=== PATIENT | female | born 1950 | race Caucasian/White ===

== ENCOUNTER 2017-12-16 10:58 | Emergency (ER) | payer OTHER ==
[~2017-12-16] VITALS: Ht 157.5 cm; Wt 110.7 kg
[~2017-12-16 10:58] MED LIST: ASPIRIN EC325 M1 PO; AUGMENTIN 875875 M1 PO; BYSTOLIC 5 MG5 M1 PO; CARISOPRODOL 3350 MG PO; CELEBREX 200 M200 M1 PO; CELEXA 20 MG TA20 M1 PO; COUMADIN7.5 MG PO; CYCLOBENZAPRINE10 MG PO; D3 DOTS2000 UNIT PO; FISH OIL 1,2001 EAC4 PO; FISH OIL CONC1000 MG PO; FUROSEMIDE 40 M40 MG PO; HYDROCODON-ACE1 EA12 PO; LISINOPRIL20 MG PO; LIVALO2 MG PO; NORCO 5-325 TA1 EACH PO; NORCO 7.5-3251 EACH PO; TRAMADOL 50 MG50 MG PO; TYLENOL EXTRA500 MG PO; XARELTO15 MG PO
[2017-12-16 10:59] VITALS: BP 144/72
[2017-12-16] MEDS ORDERED: NORFLEX100 MG PO (12:16)
[2017-12-16] MEDS ORDERED: PERCOCET PO (12:16)
== END 2017-12-16 13:17 | disposition home or self-care (01) ==
LOC: ER 10:58
DX: M54.5 Low back pain (principal); M53.3 Sacrococcygeal disorders, not elsewhere classified; G89.29 Other chronic pain; E66.9 Obesity, unspecified; I10 Essential (primary) hypertension; E78.5 Hyperlipidemia, unspecified; Z88.2 Allergy status to sulfonamides; Z88.8 Allergy status to other drugs, medicaments and biological substances; Z68.41 Body mass index [BMI] 40.0-44.9, adult; Z95.5 Presence of coronary angioplasty implant and graft; Z96.652 Presence of left artificial knee joint

== ENCOUNTER → 2019-01-26 | Outpatient (CLI) | payer OTHER ==
[~2019-01-26] VITALS: Ht 157.5 cm; Wt 112.5 kg
[~2019-01-26] MED LIST changes: +ELIQUIS5 MG PO; +NORFLEX100 MG PO; +PERCOCET PO
[2019-01-26 12:50] VITALS: BP 153/88
[2019-01-26 13:15] LABS: HEMATOCRIT 44.5 % (37.0-47.0); HEMOGLOBIN 14.3 gm/dL (12.0-15.0); MCH 26.7 pg (26.0-34.0); MCHC 32.1 g/dL (28.0-37.0); MCV 83.2 fL (80.0-100.0); RBC 5.35 mil/uL (4.20-5.00); RDW 14.8 % (10.5-14.5); WBC 10.4 thou/uL (4.0-11.0)
[2019-01-26 13:26] LABS: CALCIUM 10.2 mg/dL (8.5-10.1); CREATININE 0.9 mg/dL (0.6-1.0); POTASSIUM 4.3 mmol/L (3.5-5.1); PROTIME 9.5 Seconds (9.3-11.4)
[2019-01-26 16:03] VITALS: BP 111/62
[2019-01-26 16:28] VITALS: BP 95/57
== END | disposition home or self-care (01) ==
LOC: CATH 11:52
PROVIDERS: Nuclear Medicine Nuclear Cardiology
DX: I87.1 Compression of vein (principal); I87.303 Chronic venous hypertension (idiopathic) without complications of bilateral lower extremity; I82.402 Acute embolism and thrombosis of unspecified deep veins of left lower extremity; I11.0 Hypertensive heart disease with heart failure; I50.9 Heart failure, unspecified; E78.00 Pure hypercholesterolemia, unspecified; E78.5 Hyperlipidemia, unspecified; I25.10 Atherosclerotic heart disease of native coronary artery without angina pectoris; M19.90 Unspecified osteoarthritis, unspecified site; E66.01 Morbid (severe) obesity due to excess calories; I25.2 Old myocardial infarction; I73.9 Peripheral vascular disease, unspecified; Z98.890 Other specified postprocedural states; Z88.2 Allergy status to sulfonamides; Z88.8 Allergy status to other drugs, medicaments and biological substances; Z79.01 Long term (current) use of anticoagulants; Z79.899 Other long term (current) drug therapy; Z86.711 Personal history of pulmonary embolism

== ENCOUNTER → 2019-10-31 | Outpatient (CLI) | payer OTHER | LOC: SJCVC 13:44 | PROVIDERS: ATTEND Internal Medicine Cardiovascular Disease | DX: I25.10 Atherosclerotic heart disease of native coronary artery without angina pectoris (principal); E78.01 Familial hypercholesterolemia; D68.59 Other primary thrombophilia; I65.23 Occlusion and stenosis of bilateral carotid arteries; I10 Essential (primary) hypertension; Z86.718 Personal history of other venous thrombosis and embolism ==

== ENCOUNTER → 2020-05-15 | Outpatient (CLI) | payer OTHER | LOC: SJCVC 13:42 | PROVIDERS: ATTEND Internal Medicine Cardiovascular Disease | DX: R94.31 Abnormal electrocardiogram [ECG] [EKG] (principal); R00.0 Tachycardia, unspecified; I44.5 Left posterior fascicular block; I25.10 Atherosclerotic heart disease of native coronary artery without angina pectoris; I10 Essential (primary) hypertension; E78.00 Pure hypercholesterolemia, unspecified; I87.2 Venous insufficiency (chronic) (peripheral); I65.23 Occlusion and stenosis of bilateral carotid arteries; I26.99 Other pulmonary embolism without acute cor pulmonale; D68.59 Other primary thrombophilia; E66.01 Morbid (severe) obesity due to excess calories; Z79.899 Other long term (current) drug therapy; Z86.718 Personal history of other venous thrombosis and embolism ==

== ENCOUNTER → 2020-11-19 | Outpatient (CLI) | payer OTHER | LOC: SJCVCIMAG 07:17 | PROVIDERS: ATTEND Internal Medicine Cardiovascular Disease | DX: I49.3 Ventricular premature depolarization (principal); I25.10 Atherosclerotic heart disease of native coronary artery without angina pectoris; I87.2 Venous insufficiency (chronic) (peripheral); I65.23 Occlusion and stenosis of bilateral carotid arteries; E78.01 Familial hypercholesterolemia; D68.59 Other primary thrombophilia; I26.99 Other pulmonary embolism without acute cor pulmonale; E78.5 Hyperlipidemia, unspecified; I10 Essential (primary) hypertension; E66.01 Morbid (severe) obesity due to excess calories; Z86.718 Personal history of other venous thrombosis and embolism; Z79.899 Other long term (current) drug therapy; Z98.61 Coronary angioplasty status; Z88.8 Allergy status to other drugs, medicaments and biological substances; Z88.2 Allergy status to sulfonamides ==